=== PATIENT | male | born 1985 | race Caucasian/White ===

== ENCOUNTER 2023-03-14 15:39 | Emergency (ER) | payer SELFPAY ==
[2023-03-14] MEDS ORDERED: IBUPROFEN 200 MG TAB PO ONE (16:03)
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
[2023-03-14] MEDS ORDERED: MORPHINE 4 MG/ML SYR ONE (17:54)
[2023-03-14 18:08] VITALS: BP 142/98; O2SAT 98
== END 2023-03-14 18:01 | disposition short-term general hospital (02) ==
LOC: ER 15:39
DX: S02.609A Fracture of mandible, unspecified, initial encounter for closed fracture (principal); Y04.2XXA Assault by strike against or bumped into by another person, initial encounter
CPT/HCPCS: 70486; 76377; 96374; 99285